=== PATIENT | female | born 1990 | race Caucasian/White ===

== ENCOUNTER 2020-10-17 08:11 | Emergency (ER) | payer MEDICARE, MEDICAID, SELFPAY ==
[2020-10-17 08:35] VITALS: BP 161/73; PULSE 98; RESP 16; TEMP 37.3; O2SAT 98; BMI 36.3
--- NOTE | 2020-10-17 09:14 | ED.EYEPROB ---
HPI - Eye Problem General Chief complaint: Eye Problems Stated complaint: eye swollen Source: patient Mode of arrival: ambulatory Limitations: no limitations History of Present Illness HPI Narrative: Patient presents to the ED to be evaluated for bilateral eyes. patient states since yesterday her colleagues notice redness on sclera that looks like blood in both eyes. Patient denies any eye pain, change in vision, eye matting, eye discharge, headache, or any recent trauma to head or eyes. Patient denies any fever or chills. chief complaint: eye redness Related Data Allergies Allergy/AdvReac Type Severity Reaction Status Date / Time Penicillins [PCN] AdvReac Unknown Verified 10/17/20 09:00 Review of Systems Review of Systems: Yes all other systems are reviewed and are negative Constitutional: Constitutional: Reports as per HPI Eyes: Eyes: Reports as per HPI and Reports no additional eye complaints Comments: both eyes have some redness ENT: Reports system reviewed and no additional complaints, except as documented and Reports as per HPI Cardiovascular: Cardiovascular: Reports as per HPI and Reports no additional cardiovascular complaints Respiratory: Respiratory: Reports as per HPI and Reports no additional respiratory complaints Gastrointestinal: Gastrointestinal: Reports as per HPI and Reports no additional gastrointestinal complaints Genitourinary: Genitourinary: Reports no additional female genitourinary complaints and Reports as per HPI Musculoskeletal: Musculoskeletal: Reports no additional musculoskeletal complaints and Reports as per HPI Neurologic: Reports system reviewed and no additional complaints, except as documented and Reports as per HPI Psychiatric: Psychiatric: Reports no additional psychiatric complaints and Reports as per HPI [facility] Social History Social History Advance Directives: No Advance Directives Information Provided: No Patient : No Physical Exam Vital Signs: Vital Signs: Last Vital Signs Temp 99.1 F 10/17/20 08:35 Pulse 98 10/17/20 08:35 Resp 16 10/17/20 08:35 BP 161/73 H 10/17/20 08:35 Pulse Ox 98 10/17/20 08:35 Body Mass Index 36.3 Const: General: cooperative, healthy appearing, comfortable, no acute distress, well developed and alert Orientation/consciousness: patient oriented x3 HENMT: Head: Yes normal to inspection, Yes No palpable skull fracture present, Yes normocephalic and Yes atraumatic Eyes: Eyes/upper lids images: 1. positive for subconjuctival hemmorrhage. 2. positive for subconjuctival hemmorhage Neck: Neck: Yes normal visual inspection, Yes full ROM, Yes no lymphadenopathy, Yes no meningeal signs, Yes trachea midline, Yes supple and No tender Chest: Chest palpation & inspection: normal inspection of the chest and normal palpation of entire chest wall Resp: Effort & Inspection: normal respiratory effort and able to speak in complete sentences Auscultation: clear to auscultation bilaterally Cardio: Jugular venous distension: no JVD GI: Inspection: Yes normal to inspection and No abdominal wall ecchymosis Palpation (GI): Soft to palpation, not firm, nontender, no guarding and not rigid : General: No CVA tenderness and Yes no CVA tenderness Back/Spine/Pelvis: Back: no CVA tenderness, No CVA tenderness and No back tenderness Skin: General skin exam: no rashes or lesions noted and elasticity normal Neuro: General: patient oriented x3, gait normal, no meningeal signs and CN's II-XI intact bilaterally Cranial nerves: Yes CN's II-XII intact bilaterally Extrem: General: Yes normal to inspection and Yes full ROM Psych: Appearance: grossly normal, well kempt and not disheveled Course Course Course Narrative: Visual acuity Reevaluation(s) Reevaluation #1: History and physical exam indicate subconjuctival hemorrhage. Patient has no eye pain. Visual acuity foro Right eye is 20/15 and Left eye is 20/25 Time: 09:24 MDM - Eye Problem MDM Narrative Medical decision making narrative: sub conjuctival hemoorhage Discharge Plan Discharge Clinical Impression: Subconjunctival hemorrhage Patient Disposition: Home, Self-Care Instructions: Subconjunctival Hemorrhage (ED) Additional Instructions: Return to the ED fir any eye pain, worsening redness, loss or change in vision, fever, chills, headache, dizziess or any other concerning symptoms. Referrals: Cruzito Velasco [Physician] - 2 days (suboncjuctival hemmorrhage. ) Stand Alone Forms: Work/School Release Interventions: ED Discharge Assessment Last Done: 10/17/20 09:32 Discharge Date/Time: 10/17/20 09:32 Print Language: Haitian
== END 2020-10-17 09:32 | disposition home or self-care (01) ==
PROVIDERS: Emergency Provider Emergency Medicine; PCP Internal Medicine
DX: H11.33 Conjunctival hemorrhage, bilateral (principal); H57.13 Ocular pain, bilateral; Z79.899 Other long term (current) drug therapy
CPT/HCPCS: 99283

== ENCOUNTER 2024-03-13 13:20 | Emergency (ER) | payer MEDICARE, MEDICAID, SELFPAY ==
--- NOTE | ~2024-03-13 | XR_ITS ---
EXAMINATION: XR FOOT, LEFT CLINICAL INFORMATION: Plantar heel pain, rule out foreign body plantar aspect. COMPARISON: None available. TECHNIQUE: AP, lateral, and oblique views of the left foot. FINDINGS: Normal bone mineralization. No fracture, dislocation, or suspicious bone lesion. There is normal alignment. There is normal plantar arch. Normal-appearing forefoot, midfoot, and hindfoot bony structures. There is a small dorsal calcaneal spur. There is focal soft tissue swelling of the plantar lateral heel, of uncertain etiology. No radiopaque foreign body or subcutaneous gas present. XR/XR foot LT 2V IMPRESSION: 1. No acute bony abnormalities. 2. Small focus of soft tissue swelling of the lateral heel, without underlying foreign body seen. Electronically signed by: Min Weiss MD 03/13/2024 02:20 PM [facility]
[2024-03-13 13:48] VITALS: BP 159/107; PULSE 130; RESP 18; TEMP 36.9; O2SAT 100; BMI 36.7
--- NOTE | 2024-03-13 13:50 | ED_ITS ---
HPI - General Adult General Chief complaint: Extremity Problem Stated complaint: foot sole problem Time Seen by Provider: 03/13/24 20:10 Source: patient Limitations: no limitations History of Present Illness ED Provider: Wendy Barraza PA-C HPI narrative: 33-year-old female with a history of autism and ADHD presents with left heel pain x4 days. Patient states she had a ?spot?, on the heel of her foot. Since she has developed swelling and pain at the site. Overlying erythema and warmth. Denies fever. Denies puncture wound. The patient is not diabetic. Related Data Previous Rx's ?Medication ?Instructions ?Recorded doxycycline hyclate 100 mg capsule 100 mg PO DAILY #13 caps 03/13/24 Allergies Allergy/AdvReac Type Severity Reaction Status Date / Time Penicillins [PCN] AdvReac Unknown Verified 03/13/24 13:55 Review of Systems 2 Review of Systems: Yes all other systems are reviewed and are negative Constitutional: Constitutional: Denies fatigue and Denies fever(s) Cardiovascular: Cardiovascular: Denies chest pain and Denies dyspnea Respiratory: Respiratory: Denies dyspnea Gastrointestinal: Gastrointestinal: Denies abdominal pain Musculoskeletal: Musculoskeletal: Denies arthralgias Integumentary/Breasts: Skin/Breast: Reports erythema and Reports wounds Endocrine: Endocrine: Denies fatigue PMFSH Past Medical History Attestation statement: The following information was validated with the patient. Social History Social History Advance Directives: No Advance Directives Information Provided: No Physical Exam ED Vital Signs: Vital Signs - 24 hr 03/13/24 13:48 03/13/24 20:49 03/13/24 20:54 Temperature 98.4 F 98.8 F 99.4 F Pulse Rate 130 H 124 H Respiratory Rate 18 18 Blood Pressure 159/107 H 154/105 H Pulse Oximetry 100 97 Oxygen Delivery Method Room Air Room Air 03/13/24 22:00 Temperature 97.9 F Pulse Rate 95 Respiratory Rate 16 Blood Pressure 127/88 Pulse Oximetry 100 Oxygen Delivery Method Room Air BMI result Body Mass Index 36.7 Const Other: Alert, well-appearing Orientation/consciousness: patient oriented x3 Resp Effort & Inspection: normal respiratory effort Cardio Other: Normal peripheral perfusion Skin Other: Warm dry no rash Neuro General: patient oriented x3, gait normal, no focal motor deficits and CN's II- XI intact bilaterally Extrem Other: Fluctuant swelling noted over the plantar surface of the heel, tender to palpation with overlying erythema and warmth. Psych Other: Cooperative Course Course Course Narrative: RME, this is a rapid medical exam performed by Pawan Fischer please refer to primary provider for complete H&P- 33 year old otherwise healthy female reporting L foot sole pain for the past couple days. reports it is uncomfortable to walk. denies injury/trauma to L foot. no increased warmth or drainage from blister which is purple in color. in triage pt is tachycardic around 130, as high as 147/150. pt is in no acute distress and asymptomatic. Reevaluation(s) Reevaluation #1: Concerned for sepsis, the patient has been tachycardic, she is still tachy, I am just seeing her as a patient. Checked her rectal temp it is 99.4, we will be adding blood cultures, lactic acid giving IV fluid Toradol, starting doxycycline. To note she is hemodynamically stable, her pressures are 154 SBP, she is not requiring weight based IV fluid. Time: 21:00 Reevaluation #2: Heart rate came down after fluid, unclear if she was just nervous, lactic acid normal Time: 22:53 Medications Administered Discontinued Medications Generic Name Dose Route Start Last Admin Trade Name Freq PRN Reason Stop Dose Admin Doxycycline Monohydrate 100 mg 03/13/24 20:48 03/13/24 20:55 Doxycycline Monohydrate 100 Mg Capsule PO 03/13/24 20:49 100 mg ONCE ONE Administration Sodium Chloride 1,000 mls @ 999 mls/hr 03/13/24 21:00 03/13/24 21:54 Ns IV 03/13/24 22:00 999 mls/hr .Q1H1M LONNIE Administration Ketorolac Tromethamine 15 mg 03/13/24 20:55 03/13/24 21:54 Ketorolac Tromethamine 15 Mg/Ml Vial IVPUSH 03/13/24 20:56 15 mg ONCE ONE Administration Medical Decision Making Medical Decision Making [facility] Narrative: 33-year-old female with a history of autism and ADHD presents with left heel pain x4 days. Patient states she had a ?spot?, on the heel of her foot. Since she has developed swelling and pain at the site. Overlying erythema and warmth. Denies fever. Denies puncture wound. The patient is not diabetic. No chronic issues History: Per patient I have considered the following differential diagnoses: Cellulitis, purulent cellulitis, osteomyelitis, puncture wound Plan: Screening labs and x-ray already drained from triage, there was no osteomyelitis. The patient has a simple purulent cellulitis, however I am questioning sepsis as she is tachycardic. She is normotensive, temp 99.4? rectally. As I have already stated, I am adding blood cultures lactic acid starting antibiotics giving normal saline and Toradol, she is not require weight based IV fluid given she is normotensive. Plan to I and D at bedside. I have independently reviewed the following tests: Labs: No overall leukocytosis but left shift noted, not anemic, no electrolyte abnormality borth ESR and CRP are elevated, lactic acid 1.1 X-ray left foot: XR/XR foot LT 2V IMPRESSION: 1. No acute bony abnormalities. 2. Small focus of soft tissue swelling of the lateral heel, without underlying foreign body seen. Electronically signed by: Min Weiss MD 03/13/2024 02:20 PM [facility] EKG: Sinus tachycardia, rate of 110, no ischemic changes no ectopy, QTC 416 Lab Data 03/13/24 16:49 03/13/24 16:49 Labs: Lab Results 03/13/24 03/13/24 03/13/24 Range/Units 16:49 16:50 21:16 WBC 10.6 (4.8-10.8) X10*3/uL RBC 5.31 (4.20-5.50) X10*6/uL Hgb 14.2 (12.0-16.0) g/dl Hct 42.8 (37.0-47.0) % MCV 80.6 (80.0-98.0) fL MCH 26.7 L (27.0-33.0) pg MCHC 33.2 (31.0-35.0) g/dl RDW 12.9 (11.0-16.0) % Plt Count 479 H (160-400) X10*3/uL MPV 8.3 L (9.4-12.3) fL Immature Gran % (Auto) 0.4 (0.0-0.4) % Neut % (Auto) 75.6 H (45-73) % Lymph % (Auto) 16.5 L (20-40) % [place] % (Auto) 6.6 (2-11) % Eos % (Auto) 0.3 (0-4) % Baso % (Auto) 0.6 (0-2) % Lymph # (Auto) 1.7 (1.2-4.9) X10*3/uL [place] # (Auto) 0.7 (0.1-1.2) X10*3/uL Eos # (Auto) 0.0 (0.0-0.4) X10*3/uL Baso # (Auto) 0.1 (0.0-0.2) X10*3/uL Abs Immat Gran (auto) 0.04 H (0.00-0.03) X10*3/uL Absolute Neuts (auto) 8.0 (2.0-8.3) x10*3/uL Absolute Nucleated RBC 0.000 (0.0-0.012) X10*3/uL Nucleated RBC % (auto) 0.0 (0.0-0.2) /100WBC ESR 42 H (0-20) MM/HR PT 14.1 H (10.9-12.4) SEC INR 1.2 H (0.9-1.1) Sodium 141 (135-145) mmol/L Potassium 3.7 (3.3-5.1) mmol/L Chloride 111 H (96-108) mmol/L Carbon Dioxide 25 (22-29) mmol/L Anion Gap 9 L (12-20) BUN 7 L (9-16) mg/dL Creatinine 0.68 (0.5-1.4) mg/dL Estim Creat Clear Calc 109.4 Estimated GFR > 60 Random Glucose 86 (60-115) mg/dL Lactic Acid 1.1 (0.5-2.0) mmol/L Calcium 8.5 (8.4-10.2) mg/dL Total Bilirubin 0.2 (0.0-1.0) mg/dL AST 27 (5-31) U/L ALT 34 H (0-31) U/L Alkaline Phosphatase 61 (39-117) U/L C-Reactive Protein 2.05 H (< or = 0.50) mg/dL Total Protein 8.3 H (6.5-8.0) g/dL Albumin 4.3 (3.5-5.0) g/dL TSH 1.18 (0.32-4.0) uIU/mL Discharge Plan Discharge Clinical Impression: Abscess Patient Disposition: Home, Self-Care Instructions: Abscess (ED), Incision and Drainage (ED) Additional Instructions: The infection on your heel is called an abscess, we drained it. See home care instructions. Take the doxycycline as directed. You do not need anymore antibiotic until tomorrow morning. 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 You can pick it up tomorrow morning. Follow up with your primary care provider as needed. Prescriptions: New doxycycline hyclate 100 mg capsule 100 mg PO DAILY Qty: 13 0RF Print Language: Sudanese
--- NOTE | 2024-03-13 13:54 | ECG_ITS ---
Test Reason : FOOT Blood Pressure : */* mmHG Vent. Rate : 110 BPM Atrial Rate : 110 BPM P-R Int : 122 ms QRS Dur : 74 ms QT Int : 308 ms P-R-T Axes : 51 9 91 degrees QTcB Int : 416 ms Sinus tachycardia , ? lead placement Borderline ECG No previous ECGs available Referred By: Sohail Fischer Electronically Signed By: CONOR JONES MD
[2024-03-13 16:53] LABS: MANUAL DIFF FLAG NO
[2024-03-13 16:55] LABS: Basophils Absolute Auto 0.1 X10*3/uL (0.0-0.2); Basophils Percent Auto 0.6 % (0-2); Eosinophils Percent Auto 0.3 % (0-4); Hematocrit 42.8 % (37.0-47.0); Hemoglobin 14.2 g/dl (12.0-16.0); Imm Gran Abs Auto 0.04 X10*3/uL (0.00-0.03); Imm Gran Pct Auto 0.4 % (0.0-0.4); Lymphocytes Absolute Auto 1.7 X10*3/uL (1.2-4.9); Lymphocytes Percent Auto 16.5 % (20-40); Mean Corpuscular HGB Conc 33.2 g/dl (31.0-35.0); Mean Corpuscular Hemoglobin 26.7 pg (27.0-33.0); Mean Corpuscular Volume 80.6 fL (80.0-98.0); Mean Platelet Volume 8.3 fL (9.4-12.3); Monocytes Absolute Auto 0.7 X10*3/uL (0.1-1.2); Monocytes Percent Auto 6.6 % (2-11); Neutrophils Percent Auto 75.6 % (45-73); Platelet Count 479 X10*3/uL (160-400); Red Blood Count 5.31 X10*6/uL (4.20-5.50); Red Cell Distribution Width 12.9 % (11.0-16.0); White Blood Count 10.6 X10*3/uL (4.8-10.8)
[2024-03-13 17:03] LABS: INTERNATIONAL NORM RATIO 1.2 (0.9-1.1); Prothrombin Time 14.1 SEC (10.9-12.4)
[2024-03-13 17:23] LABS: Alanine Aminotransferase 34 U/L (0-31); Albumin Level 4.3 g/dL (3.5-5.0); Alkaline Phosphatase 61 U/L (39-117); Anion Gap 9 (12-20); Aspartate Amino Transferase 27 U/L (5-31); Bilirubin Total 0.2 mg/dL (0.0-1.0); Blood Urea Nitrogen 7 mg/dL (9-16); C Reactive Protein 2.05 mg/dL (< or = 0.50); Calcium 8.5 mg/dL (8.4-10.2); Carbon Dioxide 25 mmol/L (22-29); Chloride 111 mmol/L (96-108); Creatinine Clr Calc Pharmacy 109.4; Estimated Glomerular Filt Rate > 60; Glucose Random 86 mg/dL (60-115); Potassium 3.7 mmol/L (3.3-5.1); Sodium 141 mmol/L (135-145); Total Protein 8.3 g/dL (6.5-8.0)
[2024-03-13 17:37] LABS: TSH reflex Free T4 1.18 uIU/mL (0.32-4.0)
[2024-03-13 17:49] LABS: Erythrocyte Sedimentation Rate 42 MM/HR (0-20)
[2024-03-13 20:49] VITALS: BP 154/105; PULSE 124; RESP 18; TEMP 37.1; O2SAT 97
[2024-03-13 20:54] VITALS: TEMP 37.4
[2024-03-13] MEDS: Doxycycline Monohydrate 100 MG CAPSULE PO (20:55)
[2024-03-13 21:44] LABS: Lactic Acid 1.1 mmol/L (0.5-2.0)
[2024-03-13] MEDS: Ketorolac Tromethamine 15 MG/ML VIAL IVPUSH (21:54)
[2024-03-13] MEDS: 0.9 % Sodium Chloride 1,000 ML 999 ML IV (21:54)
[2024-03-13 22:00] VITALS: BP 127/88; PULSE 95; RESP 16; TEMP 36.6; O2SAT 100
[2024-03-13 23:04] VITALS: BP 127/88; PULSE 95; RESP 16; TEMP 36.6; O2SAT 100
== END 2024-03-13 23:04 | disposition home or self-care (01) ==
PROVIDERS: Physician Assistant; Physician Assistant Medical; Emergency Provider Internal Medicine; PCP Internal Medicine
DX: L02.612 Cutaneous abscess of left foot (principal); L03.116 Cellulitis of left lower limb; M79.672 Pain in left foot; R00.0 Tachycardia, unspecified; R50.9 Fever, unspecified
CPT/HCPCS: 36415; 73620; 80053; 83605; 84443; 85025; 85610; 85652; 86140; 87040; 93005; 96374; 99284; J1885

== ENCOUNTER → 2024-03-13 13:52 | Outpatient (BNV) | payer MEDICARE, MEDICAID, SELFPAY | PROVIDERS: PCP Internal Medicine; Visit Provider Radiology Diagnostic Radiology | DX: M79.89 Other specified soft tissue disorders (principal) | CPT/HCPCS: 73620 ==

== ENCOUNTER → 2024-03-13 13:54 | Outpatient (BNV) | payer MEDICARE, MEDICAID, SELFPAY | PROVIDERS: PCP Internal Medicine; Visit Provider Internal Medicine Cardiovascular Disease | DX: R00.0 Tachycardia, unspecified (principal); R94.31 Abnormal electrocardiogram [ECG] [EKG] | CPT/HCPCS: 93010 ==